=== PATIENT | male | born 1965 | race Hispanic/Latino ===

== ENCOUNTER 2016-08-04 16:04 | Emergency (ER) | payer MEDICARE, OTHER ==
[2016-08-04 16:04] VITALS: BMI 30.5
[2016-08-04 16:16] VITALS: BP 105/65; PULSE 88; RESP 18; TEMP 97.8; O2SAT 96
[2016-08-04] MEDS ORDERED: TDAP Vaccine 0.5 mL Syr IM ONE (16:55)
[2016-08-04] MEDS ORDERED: Absorbable Gelatin Sponge Size 12-7 MM STA (16:55)
--- NOTE | 2016-08-04 16:57 | ED PDOC ---
Arrival/HPI - General Chief Complaint: Abnormal Skin Integrity Time Seen by Provider: 08/04/16 16:52 Historian: Patient - History of Present Illness Narrative History of Present Illness (Text): 08/04/16 18:33 50-year-old male presents today with a skin avulsion to the right fourth finger. Patient states he just got a new mandolin and was trying to slice onions with the mandolin and sustained a skin avulsion to the volar aspect of the right fourth finger. Patient states incident occurred prior to arrival. He is unsure of his last tetanus shot. Denies numbness weakness or tingling in the extremity. Patient states he doesn't have pain he is just unable to stop the bleeding at the tip of the finger. Patient states he used to be a diabetic but he had a kidney and pancreas transplant 8 years ago and he is no longer diabetic. Past Medical History - Provider Review Nursing Documentation Reviewed: Yes - Travel History Have you recently traveled outside [place] w/in the past 3 mons?: No - Past History Past History: No Previous - Infectious Disease Hx of Infectious Diseases: None - Tetanus Immunization Tetanus Immunization: Unknown - Cardiac Hx Cardiac Disorders: Yes Hx Hypertension: Yes (Prior to kidney transplant) - Pulmonary Hx Respiratory Disorders: No - Neurological Hx Neurological Disorder: Yes (MIGRAINE MARTINEZ) Hx Migraine: Yes Hx Transient Ischemic Attacks (TIA): Yes - HEENT Hx HEENT Disorder: Yes Hx Cataracts: Yes (BILATERAL SX) - Renal Hx Renal Disorder: Yes (Kidney transplant 5 years ago.) - Endocrine/Metabolic Hx 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.) - Hematological/Oncological Hx Blood Disorders: No - Integumentary Hx Dermatological Disorder: Yes (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.) - Musculoskeletal/Rheumatological Hx Musculoskeletal Disorders: Yes (BILATERAL SHOULDER ARTHROSCOPY,RIGHT KNEE SX RIGHT ACL,BILATERAL KNEE SX) Hx Falls: Yes - Gastrointestinal Hx Gastrointestinal Disorders: Yes (GASTROENTERITIS) Hx Gastroesophageal Reflux: Yes (takes Nexium BID) Other/Comment: EGD and colonoscopy - Genitourinary/Gynecological Hx Genitourinary Disorders: No - Psychiatric Hx Emotional Abuse: No Hx Physical Abuse: No Hx Substance Use: No - Surgical History Hx Orthopedic Surgery: Yes (BILATERAL SHOULDER ARTHROSCOPY,JOYCE KNEE SX,TORN ACL RIGHT KNEE,CATARACT SX) Other/Comment: pancreas and kidney transplant 5-6 yrs ago - Anesthesia Hx Anesthesia: Yes Hx Anesthesia Reactions: No Hx Malignant Hyperthermia: No - Suicidal Assessment Feels Threatened In Home Enviroment: No Family/Social History - Physician Review Nursing Documentation Reviewed: Yes Family/Social History: Unknown Family HX Smoking Status: Never Smoked Hx Alcohol Use: Yes Frequency of alcohol use: Socially Hx Substance Use: No Hx Substance Use Treatment: No Allergies/Home Meds Allergies/Adverse Reactions: Allergies hydromorphone Allergy (Verified 08/04/16 16:16) ANAPHYLAXIS peanut Allergy (Verified 08/04/16 16:16) ANAPHYLAXIS strawberry Allergy (Verified 08/04/16 16:16) ANAPHYLAXIS Home Medications: Home Meds Medication Instructions Recorded Confirmed Atorvastatin [Lipitor] 10 mg PO DAILY 01/10/14 03/09/16 Esomeprazole Magnesium [Nexium] 40 mg PO BID 06/19/14 03/09/16 Enalapril Maleate [Vasotec] 2.5 mg PO DAILY 06/25/15 03/08/16 Mycophenolate Sodium [Mycophenolic 540 mg PO BID 06/25/15 03/09/16 Acid] Prednisone 5 mg PO DAILY 06/25/15 03/09/16 Sulfamethoxazole/Trimethoprim 1 tab PO MWF 06/25/15 03/08/16 [Bactrim DS Tab] Tacrolimus [Prograf] 1 mg PO DIN 06/25/15 03/08/16 Tacrolimus [Prograf] 2 mg PO QAM 06/25/15 03/09/16 Review of Systems - Review of Systems Constitutional: absent: Fatigue, Fevers Respiratory: absent: SOB, Cough Cardiovascular: absent: Chest Pain, Palpitations Gastrointestinal: absent: Abdominal Pain Musculoskeletal: Arthralgias Skin: Laceration Neurological: absent: Headache, Dizziness Psychiatric: absent: Anxiety, Depression Physical Exam Vital Signs Reviewed: Yes Vital Signs Temp Pulse Resp BP Pulse Ox 08/04/16 16:07 97.8 F 88 18 105/65 96 Temperature: Afebrile Blood Pressure: Normal Pulse: Regular Respiratory Rate: Normal Appearance: Positive for: Well-Appearing, Non-Toxic, Comfortable Pain Distress: None Mental Status: Positive for: Alert and Oriented X 3 - Systems Exam Head: Present: Atraumatic Mouth: Present: Moist Mucous Membranes Respiratory/Chest: Present: Clear to Auscultation Cardiovascular: Present: Regular Rate and Rhythm Upper Extremity: Present: Normal ROM, NORMAL PULSES, Neurovascularly Intact, Capillary Refill < 2s, Other (right 4th finger; there is a superficial skin avulsion along the volar aspect of the 4th finger; + bleeding, full rom of finger. sensation and distal pulses intact. cap refill <2.). No: Tenderness, Swelling, Erythema Neurological: Present: Speech Normal Skin: Present: Warm, Dry, Normal Color Psychiatric: Present: Alert Medical Decision Making ED Course and Treatment: 08/04/16 18:36 Patient is nontoxic well appearing in no distress. Vital signs are stable. Wound irrigated/cleaned well with normal saline Tetanus updated Gelfoam applied. Bleeding controlled, dressing applied Patient was advised to keep the wound clean and dry, apply bacitracin twice daily pt was advised to f/u with hand specialist. will give patient keflex prophylactically as the patient is a kidney transplant and pancreas transplant and is immunocompromised. Advised follow-up with the hand specialist within the next 2 days. Advised taking antibiotics as prescribed. Advised keeping the wound clean and dry and apply bacitracin twice daily. Advised patient to return immediately if signs of infection develop or return if any other concerning symptoms develop Patient verbalizes understanding of discharge instructions and need for immediate followup. Impression: skin avulsion Keep wound clean and dry, apply bacitracin twice daily keflex; 1 capsule 4 times daily x 5 days. Follow-up with a hand specialist within the next 2 days Follow-up with primary care physician within next 2 days Return immediately if symptoms worsen persist or if new concerning symptoms develop; high fevers, increasing pain, redness, swelling or purulent discharge. - Medication Orders Current Medication Orders: Discontinued Medications Gelatin (Gelfoam Size 12-7) 1 spg MM STAT STA Stop: 08/04/16 16:56 Last Admin: 08/04/16 17:24 Dose: 1 SPG Comments: BEBA castro applied gel foam. Tetanus/Reduced Diphtheria/Acell Pertussis (Boostrix Vaccine Inj) 0.5 ml IM .ONCE ONE Stop: 08/04/16 16:56 Last Admin: 08/04/16 17:22 Dose: 0.5 ML [facility] Immunization Data Document 08/04/16 17:22 ON LICENSE OF [facility] (Rec: 08/04/16 17:24 [id number] Immunization Data Opt out of sending immunization data to Yes respository? Suppress immunization data to other Yes providers from registry? Vaccine Eligibility Yes Vaccine Information Sheet Given Yes Informed Consent Given Yes Vaccine Lot Number [id number] Vaccine Expiration Date 08/01/18 Site Given Right Deltoid Route Intramuscular Immunization Units ml Disposition/Present on Arrival - Present on Arrival Any Indicators Present on Arrival: No History of DVT/PE: No History of Uncontrolled Diabetes: No Urinary Catheter: No History of Decub. Ulcer: No History Surgical Site Infection Following: None - Disposition Have Diagnosis and Disposition been Completed?: Yes Diagnosis: Skin avulsion Disposition: HOME/ ROUTINE Disposition Time: 16:57 Patient Plan: Discharge Patient Problems: Current Active Problems Problem Status Diagnosed Gastroenteritis Acute Skin avulsion Acute Condition: GOOD Discharge Instructions (ExitCare): Skin Avulsion (ED) Additional Instructions: Keep wound clean and dry, apply bacitracin twice daily keflex; 1 capsule 4 times daily x 5 days. Follow-up with a hand specialist within the next 2 days Follow-up with primary care physician within next 2 days Return immediately if symptoms worsen persist or if new concerning symptoms develop; high fevers, increasing pain, redness, swelling or purulent discharge. Prescriptions: Cephalexin [Keflex] 500 mg PO QID #20 capsule Referrals: Jesús Tubbs MD [Primary Care Provider] - Follow up with primary Alejandra Talamantes MD [Staff Provider] - Follow up with primary Forms: WORK NOTE
== END 2016-08-04 17:57 | disposition home or self-care (01) ==
LOC: ED 16:04
DX: S61.304A Unspecified open wound of right ring finger with damage to nail, initial encounter (principal); W29.0XXA Contact with powered kitchen appliance, initial encounter; Y93.G1 Activity, food preparation and clean up; Y92.89 Other specified places as the place of occurrence of the external cause; Z23 Encounter for immunization